=== PATIENT | female | born 1955 | race Asian ===

== ENCOUNTER 2016-10-20 15:38 | Emergency (ER) | payer OTHER ==
[~2016-10-20] VITALS: Ht 165.1 cm; Wt 68.2 kg
[2016-10-20 15:51] VITALS: Ht 165.1 cm; Wt 68.2 kg
[2016-10-20 15:58] LABS: ADD SCAN DIFF NO
[2016-10-20 16:01] LABS: BASOPHIL # 0.1 10^3/ul (0.0-0.1); BASOPHILS % 0.6 % (0.0-2.0); EOSINOPHILS # 0.2 10^3/ul (0.0-0.5); EOSINOPHILS % 1.4 % (0.0-7.0); HEMATOCRIT 44.3 % (37.0-47.0); HEMOGLOBIN 14.7 g/dl (12.0-16.0); LYMPHOCYTES # 3.3 10^3/ul (0.8-2.9); LYMPHOCYTES % 30.4 % (15.0-51.0); MEAN CORPUSCULAR HEMOGLOBIN 29.5 pg (29.0-33.0); MEAN CORPUSCULAR HGB CONC 33.2 g/dl (32.0-37.0); MEAN PLATELET VOLUME 9.6 fl (7.4-10.4); MONOCYTE # 0.6 10^3/ul (0.3-0.9); MONOCYTES % 5.9 % (0.0-11.0); NEUTROPHIL # 6.6 10^3/ul (1.6-7.5); NEUTROPHILS % 61.2 % (39.0-77.0); PLATELET COUNT 319 10^3/UL (140-415); RED BLOOD COUNT 4.98 10^6/ul (4.20-5.40); RED CELL DISTRIBUTION WIDTH 12.3 % (11.5-14.5); WHITE BLOOD COUNT 10.8 10^3/ul (4.8-10.8)
--- NOTE | 2016-10-20 16:07 | ERA ---
ER Documentation Chief Complaint Date/Time DATE: 10/20/16 TIME: 16:04 Chief Complaint aloc, acting inappropriately today; tachycardia HPI The patient is a 60-year-old female, presenting to the ER because she was found very altered inside her running car with the locked windows on the street. A bystander called 911. The EMS had to break the window to get her out. She is very confused, unable to state her name. She keeps yelling that I wanted to kill myself. She is not able to provide history Past medical/sickle history/social history/review of system: Unable to perform due to condition ROS All systems reviewed and are negative except as per history of present illness. PMhx/Soc Medical and Surgical Hx: Unable to obtain Smoking Status: Never smoker Physical Exam Vitals Vital Signs Date Time Temp Pulse Resp B/P Pulse Ox O2 Delivery O2 Flow Rate FiO2 10/20/16 18:16 114 121/78 10/20/16 15:51 98.8 136 22 136/95 96 Physical Exam Const: Agitated Head: Atraumatic. Eyes: Normal Conjunctiva. ENT: Normal External Ears, Nose and Mouth. Neck: Full range of motion. No meningismus. Resp: Clear to auscultation bilaterally. Cardio: Regular tachycardic Abd: Soft, non distended, normal bowel sounds, non tender. Skin: No petechiae or rashes. Back: No midline or flank tenderness. Ext: No cyanosis, or edema. Neur: Moving all extremity, limited to the condition Psych: Psychotic, agitated Result Diagram: 10/20/16 1550 10/20/16 1550 Results 24 hrs Laboratory Tests Test 10/20/16 15:48 10/20/16 15:50 10/20/16 16:43 Bedside Glucose 124mg/dL White Blood Count 10.810^3/ul Red Blood Count 4.9810^6/ul Hemoglobin 14.7g/dl Hematocrit 44.3% Mean Corpuscular Volume 89.0fl Mean Corpuscular Hemoglobin 29.5pg Mean Corpuscular Hemoglobin Concent 33.2g/dl Red Cell Distribution Width 12.3% Platelet Count 87828^3/UL Mean Platelet Volume 9.6fl Neutrophils % 61.2% Lymphocytes % 30.4% Monocytes % 5.9% Eosinophils % 1.4% Basophils % 0.6% Nucleated Red Blood Cells % 0.0/100WBC Neutrophils # 6.610^3/ul Lymphocytes # 3.310^3/ul Monocytes # 0.610^3/ul Eosinophils # 0.210^3/ul Basophils # 0.110^3/ul Nucleated Red Blood Cells # 0.010^3/ul Prothrombin Time 12.4Sec Prothrombin Time Ratio 1.0 INR International Normalized Ratio 0.92 Activated Partial Thromboplast Time 24.9Sec Sodium Level 142mmol/L Potassium Level 4.8mmol/L Chloride Level 109mmol/L Carbon Dioxide Level 18mmol/L Anion Gap 20 Blood Urea Nitrogen 22mg/dl Creatinine 0.82mg/dl Glucose Level 138mg/dl Calcium Level 9.8mg/dl Total Bilirubin 0.7mg/dl Direct Bilirubin 0.00mg/dl Indirect Bilirubin 0.7mg/dl Aspartate Amino Transf (AST/SGOT) 53IU/L Alanine Aminotransferase (ALT/SGPT) 37IU/L Alkaline Phosphatase 90IU/L Ammonia < 9umol/l Total Protein 8.9g/dl Albumin 5.5g/dl Globulin 3.40g/dl Albumin/Globulin Ratio 1.61 Thyroid Stimulating Hormone (TSH) 1.800MIU/L Salicylates Level < 1.0mg/dl Acetaminophen Level < 10.0ug/ml Ethyl Alcohol Level < 10.0mg/dl Urine Color LT. YELLOW Urine Clarity CLEAR Urine pH 5.5 Urine Specific [place] >=1.030 Urine Ketones 40 Urine Nitrite NEGATIVE Urine Bilirubin NEGATIVE Urine Urobilinogen 0.2 E.U./dL Urine Leukocyte Esterase NEGATIVE Urine Microscopic RBC 2-5/HPF Urine Microscopic WBC 2-5/HPF Urine Epithelial Cells RARE Urine Hemoglobin TRACE Urine Glucose NEGATIVE% Urine Total Protein NEGATIVE Urine Opiates Screen Negative Urine Barbiturates Negative Urine Amphetamines Screen NEGATIVE Urine Benzodiazepines Screen Negative Urine Cocaine Screen Negative Urine Cannabinoids Negative Current Medications Medications (Trade) Dose Ordered Sig/[place] PRN Reason Start Time Stop Time Status Last Admin Dose Admin Lorazepam (Ativan) 1 mg ONCE ONCE IV 10/20/16 16:30 10/20/16 16:31 DC 10/20/16 16:08 Haloperidol (Haldol) 5 mg ONCE ONCE IM 10/20/16 17:00 10/20/16 17:01 DC 10/20/16 16:43 Diphenhydramine HCl (Benadryl) 50 mg ONCE ONCE IM 10/20/16 17:00 10/20/16 17:01 DC 10/20/16 16:43 Procedures/MDM [place] [id number] Radiology Main Line: [phone] DIAGNOSTIC IMAGING REPORT Patient: GUY GARCIA : 1955 Age: 60 Sex: F MR #: [id number] DOS: 10/20/161546 Ordering MD: HARPREET SPARKS MD Location: E/R Room/Bed: PROCEDURE: XR Chest. CLINICAL INDICATION: Altered level of consciousness. TECHNIQUE: Single frontal view of the chest was obtained. COMPARISON: None FINDINGS: The soft tissues are normal. Monitoring electrodes are draped across the chest. The bony elements are normal. The heart, cardiomediastinal silhouette and hilar structures are normal. The pulmonary vasculature is normal. There is a left-sided aorta. The lungs are clear. The costophrenic angles are normal. There are clips in the right upper quadrant. IMPRESSION: 1. Normal chest x-ray. 2. Status post cholecystectomy. RPTAT:AAJJ Physician Pattie Date Time Electronically viewed and signed by Haroon Everett Physician on 10/20/2016 18:23 JM/ CC: HARPREET SPARKS MD [address] [address] Radiology Main Line: [phone] DIAGNOSTIC IMAGING REPORT Patient: GUY GARCIA : 1955 Age: 60 Sex: F MR #: [id number] DOS: 10/20/161546 Ordering MD: HARPREET SPARKS MD Location: E/R Room/Bed: PROCEDURE: CT Brain without contrast. CLINICAL INDICATION: Altered mental status. TECHNIQUE: A CT of the brain was performed on a high-resolution CT scanner utilizing a low dose technique with axial imaging from the skull base through the vertex without IV contrast. Multiplanar reformatted images were made. Images were reviewed on a PACS workstation. The CTDIvol is 49 mGy and the DLP is 996 mGycm. One or more of the following dose reduction techniques were used: - Automated exposure control. - Adjustment of the mA and/or kV according to patient size. Use of iterative reconstruction technique. COMPARISON: None FINDINGS: The fourth ventricle is normal in size. The third and lateral ventricles are normal in size and configuration. The brain parenchyma is normal. The visible portions of the globes and extraocular muscles are normal. The paranasal sinuses are clear. The mastoid air cells and internal auditory canals are normal. The bony calvarium is intact. IMPRESSION: 1. Negative CT scan of the brain without contrast. RPTAT:AAJJ Physician Pattie Date Time Electronically viewed and signed by Haroon Everett Physician on 10/20/2016 18:54 JM/ CC: HARPREET SPARKS MD EKG: Read by emergency physician Rate/Rhythm: Sinus tachycardia 126 beats/min QRS, ST, T-waves: No ST elevation, nonspecific T abnormality Impression: Abnormal EKG MEDICAL MAKING DECISION: The patient is a 60-year-old female, presenting with acute psychosis of unclear etiology. She kept repeating "I want to kill myself ". The differential diagnoses considered include but are not limited to psychosis, drug-induced psychosis, decompensated psychiatric illness, anxiety attack, panic attack She did not respond to counseling, she was therefore treated with Ativan 1 mg IV , haloperidol 5 mg IM and Benadryl 50 mg IM with good response Departure Diagnosis: Primary Impression: Acute psychosis Condition: Stable Comments She is waiting for telepsychiatrist evaluation HARPREET SPARKS MD Oct 20, 2016 16:07
[2016-10-20 16:21] LABS: INR 0.92; PROTIME 12.4 Sec (12.2-14.2)
[2016-10-20 16:22] LABS: PARTIAL THROMBOPLASTIN TIME 24.9 Sec (25.0-35.0)
[2016-10-20] MEDS ORDERED: LORAZEPAM 2 MG INJ IV ONE (16:30)
[2016-10-20 16:51] LABS: ADD UMIC YES; URINE BILIRUBIN (Dip) NEGATIVE (NEGATIVE); URINE BLOOD (Dip) TRACE (NEGATIVE); URINE COLOR LT. YELLOW (YELLOW); URINE GLUCOSE (Dip) NEGATIVE (NEGATIVE); URINE KETONES (Dip) 40 (NEGATIVE); URINE LEUKOCYTE ESTERASE (Dip) NEGATIVE (NEGATIVE); URINE NITRITE (Dip) NEGATIVE (NEGATIVE); URINE TOTAL PROTEIN (Dip) NEGATIVE (NEGATIVE); URINE UROBILINOGEN (Dip) 0.2 E.U./dL (0.1-1.0)
[2016-10-20] MEDS ORDERED: HALOPERIDOL 5 MG INJ IM ONE (17:00)
[2016-10-20] MEDS ORDERED: DIPHENHYDRAMINE 50 MG INJ IM ONE (17:00)
[2016-10-20 17:42] LABS: ACETAMINOPHEN < 10.0 ug/ml (10.0-30.0); ALANINE AMINOTRANSFERASE 37 IU/L (13-69); ALBUMIN 5.5 g/dl (3.3-4.9); ALBUMIN/GLOBULIN RATIO 1.61; ALKALINE PHOSPHATASE 90 IU/L (42-121); ANION GAP 20 (8-16); ASPARTATE AMINO TRANSFERASE 53 IU/L (15-46); BILIRUBIN,INDIRECT 0.7 mg/dl (0-1.1); BILIRUBIN,TOTAL 0.7 mg/dl (0.2-1.3); BLOOD UREA NITROGEN 22 mg/dl (7-20); CALCIUM 9.8 mg/dl (8.4-10.2); CARBON DIOXIDE 18 mmol/L (21-31); CHLORIDE 109 mmol/L (97-110); CREATININE 0.82 mg/dl (0.44-1.00); ETHANOL < 10.0 mg/dl; GLUCOSE 138 mg/dl (70-220); POTASSIUM 4.8 mmol/L (3.5-5.1); SALICYLATE < 1.0 mg/dl (5.0-30.0); SODIUM 142 mmol/L (135-144); TOTAL PROTEIN 8.9 g/dl (6.1-8.1)
[2016-10-20 17:42] LABS: BARBITURATES Negative (NEGATIVE); BENZODIAZEPINES Negative (NEGATIVE); CANNABINOIDS Negative (NEGATIVE); COCAINE Negative (NEGATIVE); OPIATES Negative (NEGATIVE)
--- NOTE | 2016-10-20 18:23 | RADRPT ---
PROCEDURE: XR Chest. CLINICAL INDICATION: Altered level of consciousness. TECHNIQUE: Single frontal view of the chest was obtained. COMPARISON: None FINDINGS: The soft tissues are normal. Monitoring electrodes are draped across the chest. The bony elements are normal. The heart, cardiomediastinal silhouette and hilar structures are normal. The pulmonary vasculature is normal. There is a left-sided aorta. The lungs are clear. The costophrenic angles are normal. There are clips in the right upper quadrant. IMPRESSION: 1. Normal chest x-ray. 2. Status post cholecystectomy. RPTAT:AAJJ Physician Pattie Date Time Electronically viewed and signed by Physician Pattie on 10/20/2016 18:23 NO/
--- NOTE | 2016-10-20 18:55 | RADRPT ---
PROCEDURE: CT Brain without contrast. CLINICAL INDICATION: Altered mental status. TECHNIQUE: A CT of the brain was performed on a high-resolution CT scanner utilizing a low dose te chnique with axial imaging from the skull base through the vertex without IV contrast. Multiplanar reformatted images were made. Images were reviewed on a PACS workstation. The CTDIvol is 49 mGy an d the DLP is 996 mGycm. One or more of the following dose reduction techniques were used: - Automated exposure control. - Adjustment of the mA and/or kV according to patient size. Use of iterative reconstruction technique. COMPARISON: None FINDINGS: The fourth ventricle is normal in size. The third and lateral ventricles are normal in size and con figuration. The brain parenchyma is normal. The visible portions of the globes and extraocular muscles are normal. The paranasal sinuses are cl ear. The mastoid air cells and internal auditory canals are normal. The bony calvarium is intact. IMPRESSION: 1. Negative CT scan of the brain without contrast. RPTAT:AAJJ Physician Pattie Date Time Electronically viewed and signed by Physician Pattie on 10/20/2016 18:54 NO/
[2016-10-20 19:31] VITALS: TEMP 98.2
--- NOTE | 2016-10-20 20:27 | PSY ---
Date/Time of Note Date/Time of Note DATE: 10/20/16 TIME: 23:20 Psychiatric Subjective Eval Consent Pt consented to telemedicine: Yes Subjective Evaluation Patient location: emergency Chief Complaint: aloc, acting inappropriately today; tachycardia History of present illness HPI: The patient is a 60 yo female with a self reported hx of schizophrenia. She was found by police, unconscioius, in her locked, running car, on the side of the road. The police had to break the windows of the car to get the patient out. She was brought to [facility] and vidhyae agitated, screaming that she wanted to kill herself and was given IM meds. On exam, pt now denies wanting to kill herself, reports no understanding of what happened to her,simply reports that she was in her car, does not know why she was unconscious. Does not know year or month but does know name. Denies drug use. Past Psych Hx: pt reports one psych admit in 2007 for schizophrenia. She does not remember any other psych hx PMhx: pt denies All/Meds: pt denies Soc Hx: pt reports she lives alone in [place] and has family in the area MSE: very sweaty, confused, oriented only to self, some latency of speech, restricted affect, monotone speech, very vague, no delusions, no avh, deneis si/ hi Imp:60 yo female with unclear hx. Possible depression and/or delirium and/or suicide attempt with intoxication and/or psychosis/catatonia.Currently VS are stable and pt's mental status has been improving (from when she was unconscious) . -5150 and admit to psych after she has been medically cleared, currently delirious so not medically cleared -obtain parallel hx from family -zyprexa 2.5mg bid -for moderate agitation zyprexa 5mg po prn -for severe agitation haldol 5mg IM, ativan 2mg IM, cogentin 1mg im -full medical workup as has been done (CT normal), checking for infection, metabolic abnormality -also check utox, ua, tsh, b12, rpr, electrolytes, cbc, lfts -avoid benzodiazepines as they woudl likely worsen a potential delirium -would prophylactically place on etoh withdrawal precautions given it is unclear what substance she may or may not have been taking; prn of chlordiazepoxide 50mg po prn SBP > 140, DBP > 90, HR > 100 -psych should follow daily for now -would recommend 1: 1 sitter while on the medical floor Medical history Problems Medical Problems: (1) Acute psychosis Status: Acute Allergies: Coded Allergies: No Known Allergy (Unverified , 10/20/16) Psychiatric Objective Eval Mental Status Examination: Laboratory Results Laboratory Tests Test 10/20/16 15:48 10/20/16 15:50 10/20/16 16:43 Bedside Glucose 124mg/dL White Blood Count 10.810^3/ul Red Blood Count 4.9810^6/ul Hemoglobin 14.7g/dl Hematocrit 44.3% Mean Corpuscular Volume 89.0fl Mean Corpuscular Hemoglobin 29.5pg Mean Corpuscular Hemoglobin Concent 33.2g/dl Red Cell Distribution Width 12.3% Platelet Count 09029^3/UL Mean Platelet Volume 9.6fl Neutrophils % 61.2% Lymphocytes % 30.4% Monocytes % 5.9% Eosinophils % 1.4% Basophils % 0.6% Nucleated Red Blood Cells % 0.0/100WBC Neutrophils # 6.610^3/ul Lymphocytes # 3.310^3/ul Monocytes # 0.610^3/ul Eosinophils # 0.210^3/ul Basophils # 0.110^3/ul Nucleated Red Blood Cells # 0.010^3/ul Prothrombin Time 12.4Sec Prothrombin Time Ratio 1.0 INR International Normalized Ratio 0.92 Activated Partial Thromboplast Time 24.9Sec Sodium Level 142mmol/L Potassium Level 4.8mmol/L Chloride Level 109mmol/L Carbon Dioxide Level 18mmol/L Anion Gap 20 Blood Urea Nitrogen 22mg/dl Creatinine 0.82mg/dl Glucose Level 138mg/dl Calcium Level 9.8mg/dl Total Bilirubin 0.7mg/dl Direct Bilirubin 0.00mg/dl Indirect Bilirubin 0.7mg/dl Aspartate Amino Transf (AST/SGOT) 53IU/L Alanine Aminotransferase (ALT/SGPT) 37IU/L Alkaline Phosphatase 90IU/L Ammonia < 9umol/l Total Protein 8.9g/dl Albumin 5.5g/dl Globulin 3.40g/dl Albumin/Globulin Ratio 1.61 Thyroid Stimulating Hormone (TSH) 1.800MIU/L Salicylates Level < 1.0mg/dl Acetaminophen Level < 10.0ug/ml Ethyl Alcohol Level < 10.0mg/dl Urine Color LT. YELLOW Urine Clarity CLEAR Urine pH 5.5 Urine Specific [place] >=1.030 Urine Ketones 40 Urine Nitrite NEGATIVE Urine Bilirubin NEGATIVE Urine Urobilinogen 0.2 E.U./dL Urine Leukocyte Esterase NEGATIVE Urine Microscopic RBC 2-5/HPF Urine Microscopic WBC 2-5/HPF Urine Epithelial Cells RARE Urine Hemoglobin TRACE Urine Glucose NEGATIVE% Urine Total Protein NEGATIVE Urine Opiates Screen Negative Urine Barbiturates Negative Urine Amphetamines Screen NEGATIVE Urine Benzodiazepines Screen Negative Urine Cocaine Screen Negative Urine Cannabinoids Negative RIMA BALTAZAR Oct 20, 2016 20:27
[2016-10-20] MEDS ORDERED: SOD CHLORIDE 0.9% 1,000 ML IV ONE ×2 (20:30→21:00)
[2016-10-20] MEDS: KETOROLAC 30 MG INJ IV STA ×2 (21:03→23:30)
[2016-10-20] MEDS ORDERED: morphine 2 MG INJ IV ONE (23:30)
[2016-10-20 23:41] VITALS: BP 105/52; PULSE 92; RESP 18
== END 2016-10-21 00:02 ==
LOC: E/R 15:38
DX: F23 Brief psychotic disorder (principal); R40.2142 Coma scale, eyes open, spontaneous, at arrival to emergency department; R40.2252 Coma scale, best verbal response, oriented, at arrival to emergency department; R40.2362 Coma scale, best motor response, obeys commands, at arrival to emergency department
CPT/HCPCS: 70450; 71010; 80053; 80306; 80307; 81001; 82140; 82962; 84443; 85025; 85610; 85730; 93005; J1200; J1630; J1885; J2060; J7030; 36415; 96372; 96374; 96375

== ENCOUNTER 2016-10-26 14:38 | Emergency (ER) | payer SELFPAY ==
[~2016-10-26] VITALS: Wt 62.0 kg
--- NOTE | 2016-10-26 15:12 | ERA ---
ER Documentation Chief Complaint Date/Time DATE: 10/26/16 TIME: 15:11 Chief Complaint FOUND IN TRIAGE NON VERBAL, NO TRAUMA. REPETETIVE QUESTIONING,HX OF PSYCH HPI 60-year-old female with recent ER evaluation and placement to inpatient psychiatric facility for acute psychosis who presents after being dropped off by a cab. Patient was apparently nonverbal and only asking about her car, she had a staring gaze and refused to interact with people. The patient cannot provide any further history. On my exam the patient is staring forward and slightly catatonic. She is nonverbal. It appears though when she was taken to CAT scan she has verbalize that she did not want a CAT scan. Remainder of HPI is extremely limited. ROS Nonverbal Medications Home Meds Unable to Obtain Active Prescriptions or Reported Meds Allergies Allergies: Coded Allergies: No Known Allergy (Unverified , 10/20/16) PMhx/Soc Medical and Surgical Hx: Unable to obtain Smoking Status: Unknown if ever smoked Physical Exam Vitals Vital Signs Date Time Temp Pulse Resp B/P Pulse Ox O2 Delivery O2 Flow Rate FiO2 10/26/16 14:41 97.8 77 16 158/76 99 Physical Exam General: Well developed, well nourished, staring gaze, nonverbal, not following commands Head: Normocephalic, atraumatic. Eyes: Pupils equally reactive, EOM intact ENT: Moist mucous membranes Neck: Supple, no lymphadenopathy Respiratory: Lungs clear bilaterally, no distress Cardiovascular: RRR, no murmurs, rubs, or gallops Abdominal: Soft, non-tender, non-distended, no peritoneal signs : Deferred MSK: No edema, no unilateral swelling, Neurologic: Uncooperative, alert, nonverbal, catatonia occasionally Skin: No rash Psych: Difficult to assess Result Diagram: 10/26/16 1510 10/26/16 1510 Results 24 hrs Laboratory Tests Test 10/26/16 15:10 White Blood Count 8.710^3/ul Red Blood Count 4.7310^6/ul Hemoglobin 14.0g/dl Hematocrit 42.3% Mean Corpuscular Volume 89.4fl Mean Corpuscular Hemoglobin 29.6pg Mean Corpuscular Hemoglobin Concent 33.1g/dl Red Cell Distribution Width 12.1% Platelet Count 22995^3/UL Mean Platelet Volume 8.9fl Neutrophils % 68.9% Lymphocytes % 22.4% Monocytes % 6.7% Eosinophils % 1.2% Basophils % 0.5% Nucleated Red Blood Cells % 0.0/100WBC Neutrophils # 6.010^3/ul Lymphocytes # 1.910^3/ul Monocytes # 0.610^3/ul Eosinophils # 0.110^3/ul Basophils # 0.010^3/ul Nucleated Red Blood Cells # 0.010^3/ul Urine Color LT. YELLOW Urine Clarity CLEAR Urine pH 5.5 Urine Specific [place] >=1.030 Urine Ketones 3+ Urine Nitrite NEGATIVE Urine Bilirubin 1+ Urine Ictotest NEGATIVE Urine Urobilinogen 0.2 E.U./dL Urine Leukocyte Esterase NEGATIVE Urine Microscopic RBC 0-2/HPF Urine Microscopic WBC NONE SEEN/HPF Urine Hemoglobin TRACE Urine Glucose NEGATIVE% Urine Total Protein NEGATIVE Sodium Level 138mmol/L Potassium Level 3.6mmol/L Chloride Level 102mmol/L Carbon Dioxide Level 24mmol/L Anion Gap 16 Blood Urea Nitrogen 18mg/dl Creatinine 0.76mg/dl Glucose Level 101mg/dl Calcium Level 9.6mg/dl Total Bilirubin 0.7mg/dl Direct Bilirubin 0.00mg/dl Indirect Bilirubin 0.7mg/dl Aspartate Amino Transf (AST/SGOT) 27IU/L Alanine Aminotransferase (ALT/SGPT) 40IU/L Alkaline Phosphatase 87IU/L Total Protein 8.0g/dl Albumin 5.0g/dl Globulin 3.00g/dl Albumin/Globulin Ratio 1.66 Salicylates Level < 1.0mg/dl Urine Opiates Screen Negative Acetaminophen Level < 10.0ug/ml Urine Barbiturates Negative Urine Amphetamines Screen Negative Urine Benzodiazepines Screen Negative Urine Cocaine Screen Negative Urine Cannabinoids Negative Ethyl Alcohol Level < 10.0mg/dl Procedures/MDM EKG/DIAGNOSTIC IMAGING: Patient refused CT scan LAB INTERPRETATION: No acute process MEDICAL DECISION MAKING: The patient's presentation is consistent with underlying psychiatric illness and likely exacerbation of this illness and/or psychosis. I have a much lower clinical concern for delirium or acute organic pathology such as toxicologic, metabolic, ischemic, intracranial hemorrhage, infectious process. However, we must rule this out prior to relying a diagnosis of underlying psychiatric illness. The patient's workup will include medical screening examination, laboratory analysis, and diagnostic imaging such as EKG, chest x-ray or CT brain as indicated. If the patient's medical examination and laboratory analysis do not reveal acute organic pathology the patient will be medically cleared for psychiatric evaluation. ER COURSE: The patient's laboratory analysis, diagnostic imaging do not suggest an acute organic pathology. At this time I believe the patient's presentation is very consistent with underlying psychiatric illness. The patient is medically cleared for psychiatric evaluation. I kept the patient and/or family informed of laboratory and diagnostic imaging results throughout the emergency room course. CONSULTATION: Psychiatric consultation: Telemetry medicine psychiatry has been consulted on this case to evaluate the patient for possible acute psychiatric illness that would require inpatient hospitalization. DISPOSITION PLAN: Telemetry psychiatry recommends 5150 hold and placement. Awaiting placement. Departure Diagnosis: Primary Impression: Acute psychosis Condition: Stable WESTLEY MEDINA MD Oct 26, 2016 15:12
[2016-10-26 15:26] LABS: ADD SCAN DIFF NO
[2016-10-26 15:30] LABS: ADD UMIC YES; BASOPHILS % 0.5 % (0.0-2.0); EOSINOPHILS # 0.1 10^3/ul (0.0-0.5); EOSINOPHILS % 1.2 % (0.0-7.0); HEMATOCRIT 42.3 % (37.0-47.0); LYMPHOCYTES # 1.9 10^3/ul (0.8-2.9); LYMPHOCYTES % 22.4 % (15.0-51.0); MEAN CORPUSCULAR HEMOGLOBIN 29.6 pg (29.0-33.0); MEAN CORPUSCULAR HGB CONC 33.1 g/dl (32.0-37.0); MEAN CORPUSCULAR VOLUME 89.4 fl (82.0-101.0); MEAN PLATELET VOLUME 8.9 fl (7.4-10.4); MONOCYTE # 0.6 10^3/ul (0.3-0.9); MONOCYTES % 6.7 % (0.0-11.0); NEUTROPHILS % 68.9 % (39.0-77.0); PLATELET COUNT 295 10^3/UL (140-415); RED BLOOD COUNT 4.73 10^6/ul (4.20-5.40); RED CELL DISTRIBUTION WIDTH 12.1 % (11.5-14.5); UR BILIRUBIN (Dip) 1+ (NEGATIVE); UR BLOOD (Dip) TRACE (NEGATIVE); UR CLARITY CLEAR (CLEAR); UR COLOR LT. YELLOW (YELLOW); UR GLUCOSE (Dip) NEGATIVE (NEGATIVE); UR KETONES (Dip) 3+ (NEGATIVE); UR LEUKOCYTE ESTERASE (Dip) NEGATIVE (NEGATIVE); UR NITRITE (Dip) NEGATIVE (NEGATIVE); UR TOTAL PROTEIN (Dip) NEGATIVE (NEGATIVE); UR UROBILINOGEN (Dip) 0.2 E.U./dL (0.1-1.0); WHITE BLOOD COUNT 8.7 10^3/ul (4.8-10.8)
[2016-10-26 15:42] LABS: ICTOTEST NEGATIVE (NEGATIVE); URINE RBCS 0-2 /HPF (0)
[2016-10-26 15:50] LABS: ALANINE AMINOTRANSFERASE 40 IU/L (13-69); ALBUMIN/GLOBULIN RATIO 1.66; ALKALINE PHOSPHATASE 87 IU/L (42-121); ANION GAP 16 (8-16); ASPARTATE AMINO TRANSFERASE 27 IU/L (15-46); BILIRUBIN,INDIRECT 0.7 mg/dl (0-1.1); BILIRUBIN,TOTAL 0.7 mg/dl (0.2-1.3); BLOOD UREA NITROGEN 18 mg/dl (7-20); CALCIUM 9.6 mg/dl (8.4-10.2); CARBON DIOXIDE 24 mmol/L (21-31); CHLORIDE 102 mmol/L (97-110); CREATININE 0.76 mg/dl (0.44-1.00); GLUCOSE 101 mg/dl (70-220); POTASSIUM 3.6 mmol/L (3.5-5.1); SODIUM 138 mmol/L (135-144)
[2016-10-26 15:52] LABS: ACETAMINOPHEN < 10.0 ug/ml (10.0-30.0); ETHANOL < 10.0 mg/dl; SALICYLATE < 1.0 mg/dl (5.0-30.0)
[2016-10-26 16:37] LABS: BARBITURATES Negative (NEGATIVE); BENZODIAZEPINES Negative (NEGATIVE); CANNABINOIDS Negative (NEGATIVE); COCAINE Negative (NEGATIVE); OPIATES Negative (NEGATIVE)
--- NOTE | 2016-10-26 17:12 | PSY ---
Date/Time of Note Date/Time of Note DATE: 10/26/16 TIME: 20:08 Psychiatric Subjective Eval Consent Pt consented to telemedicine: Yes Subjective Evaluation Patient location: emergency Chief Complaint: FOUND IN TRIAGE NON VERBAL, NO TRAUMA. REPETETIVE QUESTIONING, HX OF PSYCH History of present illness HPI: The patient is a 60 oy female with along, chronic hx of schizophrenia. She was found in triage, on verbal, repetitively asking questions. MD met with pt. She was very odd, almost seemed catatonic. Would mostly have no reaction to MD' s questions at all except blank stare, a few times acknowledged that MD was asking questions, and simply repeated that she only came to the ED to ask [facility] parking control officer questions and refused to tell MD what questions were. She declined to answer any other questions or would just stare with no expression, not even acknowledging MD. Past Psych Hx: reported hx of chronic psych problems PMHx: unable to elicit this info due to pt's psychosis Mesd: unable to elicit this info due to pt's psychosis All: unable to elicit this info due to pt's psychosis MSE: appeasr stated age, lying in stretcher, looking at monitor but almost as if no one is there or asking questions, no acknowledgment of MD except to stare , except for a few times when she stated she was just here to ask parking atendant questions Imp: 60 yo female , appears to be very psychotic, without further information it would appear pt is too gravely disable to care for self in community -parallel hx from pt's family or friends or caregivers -for moderate agitation risperidone 2mg po and ativan 2mg po -for severe agitation haldol 5mg IM, ativan 2mg IM, cogentin 1mg im -unless additional information come sin, pt would need 5150 psych admit Medical history Problems Medical Problems: (1) Acute psychosis Status: Acute Allergies: Coded Allergies: No Known Allergy (Unverified , 10/20/16) Psychiatric Objective Eval Mental Status Examination: Laboratory Results Laboratory Tests Test 10/26/16 15:10 White Blood Count 8.710^3/ul Red Blood Count 4.7310^6/ul Hemoglobin 14.0g/dl Hematocrit 42.3% Mean Corpuscular Volume 89.4fl Mean Corpuscular Hemoglobin 29.6pg Mean Corpuscular Hemoglobin Concent 33.1g/dl Red Cell Distribution Width 12.1% Platelet Count 56075^3/UL Mean Platelet Volume 8.9fl Neutrophils % 68.9% Lymphocytes % 22.4% Monocytes % 6.7% Eosinophils % 1.2% Basophils % 0.5% Nucleated Red Blood Cells % 0.0/100WBC Neutrophils # 6.010^3/ul Lymphocytes # 1.910^3/ul Monocytes # 0.610^3/ul Eosinophils # 0.110^3/ul Basophils # 0.010^3/ul Nucleated Red Blood Cells # 0.010^3/ul Urine Color LT. YELLOW Urine Clarity CLEAR Urine pH 5.5 Urine Specific [place] >=1.030 Urine Ketones 3+ Urine Nitrite NEGATIVE Urine Bilirubin 1+ Urine Ictotest NEGATIVE Urine Urobilinogen 0.2 E.U./dL Urine Leukocyte Esterase NEGATIVE Urine Microscopic RBC 0-2/HPF Urine Microscopic WBC NONE SEEN/HPF Urine Hemoglobin TRACE Urine Glucose NEGATIVE% Urine Total Protein NEGATIVE Sodium Level 138mmol/L Potassium Level 3.6mmol/L Chloride Level 102mmol/L Carbon Dioxide Level 24mmol/L Anion Gap 16 Blood Urea Nitrogen 18mg/dl Creatinine 0.76mg/dl Glucose Level 101mg/dl Calcium Level 9.6mg/dl Total Bilirubin 0.7mg/dl Direct Bilirubin 0.00mg/dl Indirect Bilirubin 0.7mg/dl Aspartate Amino Transf (AST/SGOT) 27IU/L Alanine Aminotransferase (ALT/SGPT) 40IU/L Alkaline Phosphatase 87IU/L Total Protein 8.0g/dl Albumin 5.0g/dl Globulin 3.00g/dl Albumin/Globulin Ratio 1.66 Salicylates Level < 1.0mg/dl Urine Opiates Screen Negative Acetaminophen Level < 10.0ug/ml Urine Barbiturates Negative Urine Amphetamines Screen Negative Urine Benzodiazepines Screen Negative Urine Cocaine Screen Negative Urine Cannabinoids Negative Ethyl Alcohol Level < 10.0mg/dl RIMA BALTAZAR Oct 26, 2016 17:12
[2016-10-27 15:55] VITALS: BP 132/71; PULSE 90; RESP 16; TEMP 98
== END 2016-10-27 16:00 ==
LOC: E/R 14:38
DX: F23 Brief psychotic disorder (principal)
CPT/HCPCS: 80053; 80306; 80307; 81001; 85025; 99285